=== PATIENT | female | born 1985 | race American Indian/Alaskan Native ===

== ENCOUNTER 2018-08-16 22:40 | Emergency (ER) | payer MEDICAID ==
[2018-08-16] MEDS ORDERED: Ondansetron 4 MG/2 ML SDV IVPUSH ONE (22:45)
[2018-08-16] MEDS ORDERED: Ondansetron 4 MG/2 ML SDV ONE (22:45)
[2018-08-16] MEDS ORDERED: LORazepam 2 MG/ML Syringe ONE (22:46)
--- NOTE | 2018-08-16 23:11 | EDM.PDOC ---
ED HPI GENERAL MEDICAL PROBLEM - General Chief Complaint: General Stated Complaint: NAUSEA Time Seen by Provider: 08/16/18 22:50 Source of Information: Reports: Patient History Limitations: Reports: No Limitations - History of Present Illness INITIAL COMMENTS - FREE TEXT/NARRATIVE: Patient presents to ER with concerns of withdrawing from alcohol and vomiting. States has been "on a godfrey" for 7 days. Drinking a pint of vodka daily and not eating for 7 days. She has been under more stress as of late but denies being suicidal. "just coping with alcohol". Is not a usual drinker. States the vodka helped dull her back pain. Today started vomiting and has been all day. Noted dark vomit and was concerned was related to blood. Had a 200 ml emesis in the ambulance enroute to here. Onset: Gradual Duration: Week(s): Location: Reports: Abdomen Quality: Reports: Burning Severity: Moderate Associated Symptoms: Reports: Nausea/Vomiting. Denies: Confusion, Loss of Appetite, Shortness of Breath, Syncope, Weakness Treatments FACILITIES OFFICER: Reports: IV/IO Lower Back Pain Score (Numeric/FACES): 5 - Related Data Allergies Allergy/AdvReac Type Severity Reaction Status Date / Time No Known Allergies Allergy Verified 08/16/18 23:00 Home Meds: Home Meds . [No Known Home Meds] 08/16/18 [History] Past Medical History Musculoskeletal History: Reports: Back Pain, Chronic Social & Family History - Tobacco Use Smoking Status *Q: Unknown Ever Smoked - Alcohol Use Alcohol Use History: Yes Days Per Week of Alcohol Use: 7 Days Per Week of Alcohol Use Comment: Pint of vodka daily for 7 days Date of Last Drink: 08/16/18 ED ROS GENERAL - Review of Systems Review Of Systems: See Below Constitutional: Reports: Weakness. Denies: Fever, Chills, Malaise HEENT: Denies: Ear Pain, Rhinitis, Throat Pain Respiratory: Denies: Shortness of Breath, Cough Cardiovascular: Denies: Chest Pain, Edema, Lightheadedness Endocrine: Denies: Fatigue GI/Abdominal: Reports: Abdominal Pain, Hematemesis, Nausea, Vomiting : Reports: No Symptoms Musculoskeletal: Reports: Back Pain Skin: Reports: No Symptoms Neurological: Reports: No Symptoms Psychiatric: Reports: Anxiety, Depression ED EXAM, GENERAL - Physical Exam Exam: See Below Exam Limited By: No Limitations General Appearance: Alert, WD/WN, Mild Distress Ears: Normal External Exam, Normal TMs Nose: Normal Inspection, Normal Mucosa, No Blood Throat/Mouth: Normal Inspection, Normal Oropharynx Head: Normocephalic Neck: Normal Inspection, Supple, Non-Tender Respiratory/Chest: No Respiratory Distress, Lungs Clear, Normal Breath Sounds Cardiovascular: Regular Rate, Rhythm GI/Abdominal: Normal Bowel Sounds, Soft, Tender (midepigastric area) Extremities: Normal Inspection, Normal Capillary Refill Neurological: Alert, Oriented Skin Exam: Warm, Dry Course - Vital Signs Last Recorded V/S: Last Vital Signs Temp 100.6 F 08/16/18 22:50 Pulse 88 08/16/18 22:50 Resp 18 08/16/18 22:50 BP 175/57 H 08/16/18 22:50 Pulse Ox 96 08/16/18 22:50 - Orders/Labs/Meds Orders: Active Orders 24 hr Category Date Time Status Abdomen 2V AP Flat Upright [CR] Stat Exams 08/16/18 23:00 Taken Labs: Laboratory Tests 08/16/18 08/16/18 08/16/18 Range/Units 22:59 23:00 23:12 WBC 10.4 H (5.0-10.0) 10^3/uL RBC 4.67 (4.00-5.50) 10^6/uL Hgb 12.3 (12.0-16.0) g/dL Hct 39.2 (37.0-47.0) % MCV 83.9 (82.0-94.0) fL MCH 26.3 L (27.0-32.0) pg MCHC 31.4 L (33.0-38.0) g/dL RDW Coeff of Xi 18.0 H (11.0-15.0) % Plt Count 190 (150-400) 10^3/uL Neut % (Auto) 90.0 H (35-85) % Lymph % (Auto) 5.2 L (10-55) % [place] % (Auto) 4.4 (0-16) % Eos % (Auto) 0 (0-5) % Baso % (Auto) 0.4 (0-3) % Neut # (Auto) 9.32 H (1.80-7.00) 10^3/uL Lymph # (Auto) 0.54 L (1.00-4.80) 10^3/uL [place] # (Auto) 0.46 (0.00-0.80) 10^3/uL Eos # (Auto) 0.00 (0.00-0.45) 10^3/uL Baso # (Auto) 0.04 10^3/uL Sodium 137 (136-145) mEq/L Potassium 3.2 L (3.5-5.0) mEq/L Chloride 95 L (98-106) mEq/L Carbon Dioxide 21 (21-32) mmol/L BUN 6 L (7-18) mg/dL Creatinine 0.8 (0.6-1.0) mg/dL Est Cr Clr Drug Dosing TNP Estimated GFR (MDRD) > 60 (>=60) mL/min Glucose 80 (75-99) mg/dL Calcium 8.6 (8.4-10.1) mg/dL Total Bilirubin 1.2 H (0.0-1.0) mg/dL AST 98 H (15-37) U/L ALT 171 H (12-78) U/L Alkaline Phosphatase 98 (46-116) U/L C-Reactive Protein < 0.2 L (0.2-0.8) mg/dL Total Protein 8.3 H (6.4-8.2) g/dL Albumin 4.2 (3.4-5.0) g/dL Urine Color Dark yellow (YELLOW) Urine Appearance Clear (CLEAR) Urine pH 6.0 (4.5-8.0) Ur Specific [place] >= 1.030 H (1.003-1.020) Urine Protein >=300 H (NEGATIVE) mg/dL Urine Glucose (UA) Negative (NEGATIVE) mg/dL Urine Ketones >=160 H (NEGATIVE) mg/dL Urine Occult Blood Moderate H (NEGATIVE) Urine Nitrite Negative (NEGATIVE) Urine Bilirubin Negative (NEGATIVE) Urine Urobilinogen 0.2 (0.2-1.0) EU/dL Ur Leukocyte Esterase Negative (NEGATIVE) Urine RBC 5-10 H (0-5) /HPF Urine WBC Not seen (0-5) /HPF Ur Squamous Epith Cells Few H (NOT SEEN) /HPF Urine Bacteria Few H (NOT SEEN) /HPF Urine Mucus Occasional H (NOT SEEN) /HPF Meds: Medications Discontinued Medications Generic Name Dose Route Start Last Admin Trade Name Aleksander PRN Reason Stop Dose Admin Promethazine HCl 25 mg/ Sodium 51 mls @ 100 mls/hr 08/16/18 23:54 08/17/18 00 :01 Chloride IV 100 mls/hr Q6H PRN Administration Nausea Sodium Chloride Confirm 08/17/18 00:16 08/17/18 00:18 Normal Saline Administered 08/17/18 00:17 999 mls/hr Dose Administration 1,000 mls @ as directed .ROUTE .STK-MED ONE Sodium Chloride 1,000 mls @ 200 mls/hr 08/17/18 01:45 08/17/18 04:02 Normal Saline IV 200 mls/hr ASDIRECTED JENNIFER Administration Lorazepam Confirm 08/16/18 22:46 08/16/18 23:37 Ativan Administered 08/16/18 22:47 Not Given Dose 2 mg .ROUTE .STK-MED ONE Lorazepam 1 mg 08/16/18 23:50 08/16/18 22:50 Ativan IVPUSH 08/16/18 23:51 1 mg ONETIME ONE Administration Ondansetron HCl Confirm 08/16/18 22:45 08/16/18 23:29 Zofran Administered 08/16/18 22:46 Not Given Dose 4 mg .ROUTE .STK-MED ONE Ondansetron HCl 4 mg 08/16/18 22:45 08/16/18 22:50 Zofran IVPUSH 08/16/18 22:46 4 mg STAT ONE Administration Ondansetron HCl 4 mg 08/17/18 04:04 08/17/18 04:06 Zofran IVPUSH 08/17/18 04:05 4 mg ONETIME ONE Administration - Re-Assessments/Exams Free Text/Narrative Re-Assessment/Exam: 08/16/18 23:55 Labs are stable. Xray negative. Still having issues with nausea and dry heaves. Will give Phenergan IV. Did ask patient about assistance for discharge home. Does not know who she can call, no friends in [place] that could give her a ride. Will continue with IV fluids and phenergan/zofran through night in extended ER. May need social psychologist to help arrange transportation home in am. 08/17/18 Patient awaiting mother to come from [place] for discharge. Is doing much better this am. Does still have stomach discomfort but nausea and vomiting has subsided. Departure - Departure Time of Disposition: 08:49 Disposition: Home, Self-Care 01 Condition: Good Clinical Impression: Vomiting, Alcohol abuse - Discharge Information *PRESCRIPTION DRUG MONITORING PROGRAM REVIEWED*: No *COPY OF PRESCRIPTION DRUG MONITORING REPORT IN PATIENT GILLIAN: No Referrals: Provider,Unknown [Primary Care Provider] - Forms: ED Department Discharge Additional Instructions: 1. Push fluids 2. Diet as tolerated 3. Phenergan 25 mg every 6 hours as needed for nausea 4. Follow up with primary care provider as needed - My Orders Last 24 Hours: My Active Orders 08/16/18 23:00 Abdomen 2V AP Flat Upright [CR] Stat - Assessment/Plan Last 24 Hours: My Active Orders 08/16/18 23:00 Abdomen 2V AP Flat Upright [CR] Stat
[2018-08-16 23:22] LABS: CHLORIDE,CL 95 mEq/L (98-106); SODIUM,NA 137 mEq/L (136-145)
[2018-08-16] MEDS ORDERED: LORazepam 2 MG/ML Syringe IVPUSH ONE (23:50)
[2018-08-16] MEDS ORDERED: Promethazine 25 MG in Sodium Chloride 0.9% 50 ML IV PRN (23:54)
[2018-08-17] MEDS ORDERED: Sodium Chloride 0.9% 1,000 ML ONE (00:16)
[2018-08-17] MEDS ORDERED: Sodium Chloride 0.9% 1,000 ML IV SCH (01:45)
[2018-08-17] MEDS ORDERED: Ondansetron 4 MG/2 ML SDV IVPUSH ONE (04:04)
== END 2018-08-17 10:00 | disposition home or self-care (01) ==
LOC: CC.ED 22:40
DX: R11.2 Nausea with vomiting, unspecified (principal); F10.10 Alcohol abuse, uncomplicated
CPT/HCPCS: 36415; 74019; 80053; 81001; 82271; 85025; 86140; 96361; 96365; 96375; 99284; J2060; J2405; J2550; J7030; J7050

== ENCOUNTER 2018-11-24 22:47 | Emergency (ER) | payer SELFPAY ==
[2018-11-24] MEDS ORDERED: Folic Acid 1 MG Tab PO ONE (23:04)
[2018-11-24] MEDS ORDERED: LORazepam 2 MG/ML Syringe IVPUSH ONE (23:04)
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
[2018-11-24] MEDS ORDERED: MVI, Adult with Vitamin K 10 ML, Folic Acid 1 MG, Thiamine 100 MG, Magnesium Sulfate 2 ... IV ONE ×5 (23:13)
[2018-11-24] MEDS ORDERED: VITAMIN K IV SCH ×4 (23:15)
[2018-11-24] MEDS ORDERED: MVI IV SCH ×4 (23:15)
[2018-11-24] MEDS ORDERED: MAGNESIUM SULFATE IV SCH ×4 (23:15)
[2018-11-24] MEDS ORDERED: [UNRECOGNIZED DRUG - OTHER] IV SCH ×4 (23:15)
[2018-11-24] MEDS ORDERED: THIAMINE IV SCH ×4 (23:15)
[2018-11-24] MEDS ORDERED: Ondansetron 4 MG/2 ML SDV IVPUSH ONE (23:16)
[2018-11-24] MEDS ORDERED: Promethazine 25 MG/ML SDV IM ONE (23:39)
[2018-11-24 23:40] LABS: CHLORIDE,CL 98 mEq/L (98-106); SODIUM,NA 140 mEq/L (136-145)
== END 2018-11-25 01:45 | disposition left against medical advice (07) ==
LOC: CC.ED 22:47
DX: F10.239 Alcohol dependence with withdrawal, unspecified (principal); F32.9 Major depressive disorder, single episode, unspecified; Z87.891 Personal history of nicotine dependence
CPT/HCPCS: 36415; 80053; 80305; 81001; 83735; 85025; 96365; 96366; 96372; 96375; 99285; A9270; J2060; J2550; J3411; J3475; J7030; J3490

== ENCOUNTER 2019-04-17 22:54 | Observation (INO) | payer MEDICAID ==
[~2019-04-17 22:54] MED LIST: Ondansetron 4 MG Tab.DIS ONE
[2019-04-17] MEDS ORDERED: Ondansetron 4 MG Tab.DIS PO ONE (23:10)
[2019-04-17] MEDS ORDERED: Sodium Chloride 0.9% 1,000 ML IV ONE (23:28)
--- NOTE | 2019-04-17 23:35 | EDM.PDOC ---
ED HPI GENERAL MEDICAL PROBLEM - General Chief Complaint: General Stated Complaint: alcohol withdrawal Time Seen by Provider: 04/17/19 23:21 Source of Information: Reports: Patient, EMS History Limitations: Reports: No Limitations - History of Present Illness INITIAL COMMENTS - FREE TEXT/NARRATIVE: Jazz is a 33 year old female who presents to the ED via [facility] with c /o nausea and vomiting. She reports she has been on a 10+day godfrey of drinking alcohol and tried to stop today, but has been vomiting since. Reports she has been throwing up since this morning. She does report her last drink of ETOH was this afternoon. Reportedly has drank 2 pints of vodka today. Does have issues with depression and alcoholism since finding her boyfriend, who hung himself back in 2012. She is not currently on any antidepressants, but reports she has an appointment next week as she wishes to be. She reports she was on lexapro in the past and this managed her depression well. She reports she is interested in quitting drinking, but seems to vomit when she tries to quit. Denies any suicidal ideation. Does have some generalized abdominal pain. No fever or chills at home. Does have temp of 100.1 deg F. Onset: Today Duration: Getting Worse Location: Reports: Abdomen Improves with: Reports: None Worsens with: Reports: None Associated Symptoms: Reports: Loss of Appetite, Nausea/Vomiting Abdomen Pain Score (Numeric/FACES): 7 - Related Data Allergies Allergy/AdvReac Type Severity Reaction Status Date / Time No Known Allergies Allergy Verified 04/17/19 22:52 Home Meds: Home Meds Escitalopram [Lexapro] 10 mg PO DAILY #30 tab 04/18/19 [Rx] LORazepam 0.5 mg PO Q4H PRN #15 tab 04/18/19 [Rx] Promethazine [Phenergan] 25 mg PO Q6H PRN #20 tab 04/18/19 [Rx] Past Medical History Cardiovascular History: Reports: High Cholesterol 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: Reports: Polycystic Ovaries Musculoskeletal History: Reports: Back Pain, Chronic Other Musculoskeletal History: HAD A TUMOR REMOVED FROM SPINE 2014; CHRONIC BACK PAIN SICNE Psychiatric History: Reports: Anxiety, Depression, PTSD Dermatologic History: Reports: Other (See Below) Other Dermatologic History: LUMPECTOMY - Past Surgical History Neurological Surgical History: Reports: Lumbar Spine Social & Family History - Family History Family Medical History: Noncontributory Cardiac: Reports: Hypertension Endocrine/Metabolic: Reports: Diabetes, type II - Tobacco Use Smoking Status *Q: Never Smoker - Caffeine Use Caffeine Use: Reports: None - Alcohol Use Days Per Week of Alcohol Use: 7 Number of Drinks Per Day: 6 Total Drinks Per Week: 42 - Recreational Drug Use Recreational Drug Use: No - Living Situation & Occupation Living situation: Reports: Single, with Family ED ROS GENERAL - Review of Systems Review Of Systems: ROS reveals no pertinent complaints other than HPI. ED EXAM, GENERAL - Physical Exam Exam: See Below Exam Limited By: No Limitations General Appearance: Alert, WD/WN, Mild Distress Throat/Mouth: Normal Inspection, Normal Lips, Normal Teeth, Normal Gums, Normal Oropharynx, Normal Voice, No Airway Compromise Respiratory/Chest: No Respiratory Distress, Lungs Clear, Normal Breath Sounds, No Accessory Muscle Use, Chest Non-Tender Cardiovascular: Normal Peripheral Pulses, Regular Rate, Rhythm, No Edema, No Gallop, No JVD, No Murmur, No Rub GI/Abdominal: Normal Bowel Sounds, Soft, Tender (generalized) Back Exam: Normal Inspection, Full Range of Motion. No: CVA Tenderness (L), CVA Tenderness (R) Extremities: Normal Inspection, Normal Range of Motion, Non-Tender, Normal Capillary Refill, No Pedal Edema Neurological: Alert, Oriented, CN II-XII Intact, Normal Cognition, Normal Gait, Normal Reflexes, No Motor/Sensory Deficits Psychiatric: Depressed Mood Skin Exam: Warm, Dry, Intact, Normal Color, No Rash Lymphatic: No Adenopathy Course - Vital Signs Last Recorded V/S: Last Vital Signs Temp 99.9 F 04/18/19 12:00 Pulse 114 H 04/18/19 12:00 Resp 20 04/18/19 12:00 BP 160/72 H 04/18/19 12:00 Pulse Ox 100 04/18/19 12:00 - Orders/Labs/Meds Orders: Active Orders 24 hr Category Date Time Status Patient Status [ADT] Routine ADT 04/18/19 00:49 Active Oxygen Therapy [RC] .PRN Care 04/18/19 00:49 Active Pulse Oximetry [RC] .PRN Care 04/18/19 00:49 Active Up With Assistance [RC] .PRN Care 04/18/19 00:49 Active Vital Signs [RC] 0000,0400,0800,1200,1600,2000 Care 04/18/19 00:49 Active Resuscitation Status Routine Resus Stat 04/18/19 00:07 Ordered Labs: Laboratory Tests 04/17/19 04/17/19 04/17/19 Range/Units 23:30 23:30 23:41 WBC 6.7 (5.0-10.0) 10^3/uL RBC 4.85 (4.00-5.50) 10^6/uL Hgb 13.6 (12.0-16.0) g/dL Hct 41.2 (37.0-47.0) % MCV 84.9 (82.0-94.0) fL MCH 28.0 (27.0-32.0) pg MCHC 33.0 (33.0-38.0) g/dL RDW Coeff of Xi 17.6 H (11.0-15.0) % Plt Count 247 (150-400) 10^3/uL Neut % (Auto) 81.5 (35-85) % Lymph % (Auto) 13.2 (10-55) % [place] % (Auto) 4.7 (0-16) % Eos % (Auto) 0.3 (0-5) % Baso % (Auto) 0.3 (0-3) % Neut # (Auto) 5.49 (1.80-7.00) 10^3/uL Lymph # (Auto) 0.89 L (1.00-4.80) 10^3/uL [place] # (Auto) 0.32 (0.00-0.80) 10^3/uL Eos # (Auto) 0.02 (0.00-0.45) 10^3/uL Baso # (Auto) 0.02 10^3/uL Sodium 144 (136-145) mEq/L Potassium 3.3 L (3.5-5.0) mEq/L Chloride 102 (98-106) mEq/L Carbon Dioxide 24 D (21-32) mmol/L BUN 7 (7-18) mg/dL Creatinine 0.8 (0.6-1.0) mg/dL Est Cr Clr Drug Dosing 105.51 mL/min Estimated GFR (MDRD) > 60 (>=60) mL/min Glucose 89 D (75-99) mg/dL Calcium 8.3 L (8.4-10.1) mg/dL Total Bilirubin 0.5 (0.0-1.0) mg/dL AST 118 H (15-37) U/L ALT 110 H (12-78) U/L Alkaline Phosphatase 101 (46-116) U/L Total Protein 8.2 (6.4-8.2) g/dL Albumin 4.1 (3.4-5.0) g/dL Urine Color Yellow (YELLOW) Urine Appearance Clear (CLEAR) Urine pH 6.5 (4.5-8.0) Ur Specific [place] 1.020 (1.003-1.020) Urine Protein >=300 H (NEGATIVE) mg/dL Urine Glucose (UA) Negative (NEGATIVE) mg/dL Urine Ketones 80 H (NEGATIVE) mg/dL Urine Occult Blood Small H (NEGATIVE) Urine Nitrite Negative (NEGATIVE) Urine Bilirubin Negative (NEGATIVE) Urine Urobilinogen 1.0 (0.2-1.0) EU/dL Ur Leukocyte Esterase Trace H (NEGATIVE) Urine RBC 0-5 (0-5) /HPF Urine WBC 5-10 H (0-5) /HPF Ur Squamous Epith Cells Many H (NOT SEEN) /HPF Urine Bacteria Few H (NOT SEEN) /HPF Urine Opiates Screen (NEGATIVE) Ur Oxycodone Screen (NEGATIVE) Urine Methadone Screen (NEGATIVE) Ur Barbiturates Screen (NEGATIVE) U Tricyclic Antidepress (NEGATIVE) Ur Phencyclidine Scrn (NEGATIVE) Ur Amphetamine Screen (NEGATIVE) U Methamphetamines Scrn (NEGATIVE) Urine MDMA Screen (NEGATIVE) U Benzodiazepines Scrn (NEGATIVE) Urine Cocaine Screen (NEGATIVE) U Marijuana (THC) Screen (NEGATIVE) Ethyl Alcohol 320 H* (0-3) mg/dL 04/17/19 Range/Units 23:53 WBC (5.0-10.0) 10^3/uL RBC (4.00-5.50) 10^6/uL Hgb (12.0-16.0) g/dL Hct (37.0-47.0) % MCV (82.0-94.0) fL MCH (27.0-32.0) pg MCHC (33.0-38.0) g/dL RDW Coeff of Xi (11.0-15.0) % Plt Count (150-400) 10^3/uL Neut % (Auto) (35-85) % Lymph % (Auto) (10-55) % [place] % (Auto) (0-16) % Eos % (Auto) (0-5) % Baso % (Auto) (0-3) % Neut # (Auto) (1.80-7.00) 10^3/uL Lymph # (Auto) (1.00-4.80) 10^3/uL [place] # (Auto) (0.00-0.80) 10^3/uL Eos # (Auto) (0.00-0.45) 10^3/uL Baso # (Auto) 10^3/uL Sodium (136-145) mEq/L Potassium (3.5-5.0) mEq/L Chloride (98-106) mEq/L Carbon Dioxide (21-32) mmol/L BUN (7-18) mg/dL Creatinine (0.6-1.0) mg/dL Est Cr Clr Drug Dosing mL/min Estimated GFR (MDRD) (>=60) mL/min Glucose (75-99) mg/dL Calcium (8.4-10.1) mg/dL Total Bilirubin (0.0-1.0) mg/dL AST (15-37) U/L ALT (12-78) U/L Alkaline Phosphatase (46-116) U/L Total Protein (6.4-8.2) g/dL Albumin (3.4-5.0) g/dL Urine Color (YELLOW) Urine Appearance (CLEAR) Urine pH (4.5-8.0) Ur Specific [place] (1.003-1.020) Urine Protein (NEGATIVE) mg/dL Urine Glucose (UA) (NEGATIVE) mg/dL Urine Ketones (NEGATIVE) mg/dL Urine Occult Blood (NEGATIVE) Urine Nitrite (NEGATIVE) Urine Bilirubin (NEGATIVE) Urine Urobilinogen (0.2-1.0) EU/dL Ur Leukocyte Esterase (NEGATIVE) Urine RBC (0-5) /HPF Urine WBC (0-5) /HPF Ur Squamous Epith Cells (NOT SEEN) /HPF Urine Bacteria (NOT SEEN) /HPF Urine Opiates Screen Negative (NEGATIVE) Ur Oxycodone Screen Negative (NEGATIVE) Urine Methadone Screen Negative (NEGATIVE) Ur Barbiturates Screen Negative (NEGATIVE) U Tricyclic Antidepress Negative (NEGATIVE) Ur Phencyclidine Scrn Negative (NEGATIVE) Ur Amphetamine Screen Negative (NEGATIVE) U Methamphetamines Scrn Negative (NEGATIVE) Urine MDMA Screen Negative (NEGATIVE) U Benzodiazepines Scrn Negative (NEGATIVE) Urine Cocaine Screen Negative (NEGATIVE) U Marijuana (THC) Screen Negative (NEGATIVE) Ethyl Alcohol (0-3) mg/dL Meds: Medications Discontinued Medications Generic Name Dose Route Start Last Admin Trade Name Freq PRN Reason Stop Dose Admin Acetaminophen 650 mg 04/18/19 00:49 Tylenol PO Q4H PRN Pain (Mild 1-3)/fever Promethazine HCl 25 mg/ Sodium 51 mls @ 100 mls/hr 04/17/19 23:29 04/18/19 07 :42 Chloride IV 100 mls/hr Q6H PRN Administration Nausea Sodium Chloride 1,000 mls @ 999 mls/hr 04/17/19 23:28 04/17/19 23:51 Normal Saline IV 04/18/19 00:28 999 mls/hr .BOLUS ONE Administration Potassium Chloride/Sodium Chloride 1,000 mls @ 150 mls/hr 04/18/19 00:49 07:42 Normal Saline With 20 Meq Kcl IV 150 mls/hr ASDIRECTED JENNIFER Administration Lorazepam 1 mg 04/18/19 00:49 04/18/19 12:38 Ativan IVPUSH 1 mg Q2H PRN Administration Withdrawal Symptoms Lorazepam 2 packet 04/18/19 13:55 04/18/19 14:10 Take Home: Lorazepam 0.5 Mg, 2 Tab Pack PO 04/18/19 13:56 2 packet ONETIME ONE Administration Ondansetron HCl Confirm 04/17/19 22:42 04/17/19 23:53 Zofran Odt Administered 04/17/19 22:43 Not Given Dose 4 mg .ROUTE .STK-MED ONE Ondansetron HCl 4 mg 04/17/19 23:10 04/17/19 23:10 Zofran Odt PO 04/17/19 23:11 4 mg ONETIME ONE Administration Pantoprazole Sodium 40 mg 04/18/19 00:49 04/18/19 01:15 Protonix Iv IVPUSH 40 mg Q24H JENNIFER Administration Departure - Departure Time of Disposition: 00:18 Disposition: Refer to Observation Condition: Fair Clinical Impression: Alcohol abuse, Alcoholism, Elevated liver enzymes Depression Qualifiers: Depression Type: major depressive disorder Major depression recurrence: recurrent Active/Remission status: currently active Major depression episode severity: severe Psychotic features: without psychotic features Qualified Code(s ): F33.2 - Major depressive disorder, recurrent severe without psychotic features Vomiting Qualifiers: Vomiting type: unspecified Vomiting Intractability: non-intractable Nausea presence: with nausea Qualified Code(s): R11.2 - Nausea with vomiting, unspecified - Discharge Information *PRESCRIPTION DRUG MONITORING PROGRAM REVIEWED*: Not Applicable *COPY OF PRESCRIPTION DRUG MONITORING REPORT IN PATIENT GILLIAN: Not Applicable - Problem List & Annotations (1) Alcohol abuse SNOMED Code(s): 70156908 Code(s): F10.10 - ALCOHOL ABUSE, UNCOMPLICATED Status: Acute (2) Alcoholism SNOMED Code(s): 7127224 Code(s): F10.20 - ALCOHOL DEPENDENCE, UNCOMPLICATED Status: Acute Priority: Medium (3) Depression SNOMED Code(s): 00449865 Code(s): F32.9 - MAJOR DEPRESSIVE DISORDER, SINGLE EPISODE, UNSPECIFIED Status: Acute Priority: High Qualifiers: Depression Type: major depressive disorder Major depression recurrence: recurrent Active/Remission status: currently active Major depression episode severity: severe Psychotic features: without psychotic features Qualified Code(s): F33.2 - Major depressive disorder, recurrent severe without psychotic features (4) Vomiting SNOMED Code(s): 708996299 Code(s): R11.10 - VOMITING, UNSPECIFIED Status: Acute Qualifiers: Vomiting type: unspecified Vomiting Intractability: non-intractable Nausea presence: with nausea Qualified Code(s): R11.2 - Nausea with vomiting, unspecified (5) Elevated liver enzymes SNOMED Code(s): 173064737 Code(s): R74.8 - ABNORMAL LEVELS OF OTHER SERUM ENZYMES Status: Chronic - Problem List Review Problem List Initiated/Reviewed/Updated: Yes - My Orders Last 24 Hours: My Active Orders 04/18/19 00:07 Resuscitation Status Routine 04/18/19 00:49 Patient Status [ADT] Routine Oxygen Therapy [RC] .PRN Pulse Oximetry [RC] .PRN Up With Assistance [RC] .PRN Vital Signs [RC] 0000,0400,0800,1200,1600,2000 - Assessment/Plan Admission H&P: Please use this note as an admission H&P Last 24 Hours: My Active Orders 04/18/19 00:07 Resuscitation Status Routine 04/18/19 00:49 Patient Status [ADT] Routine Oxygen Therapy [RC] .PRN Pulse Oximetry [RC] .PRN Up With Assistance [RC] .PRN Vital Signs [RC] 0000,0400,0800,1200,1599,1999 Assessment:: Alcohol Abuse Alcoholism Depression Vomiting Plan: Will admit to observation overnight for IVF and K. Phenergan as needed for N/V. Will start protonix. Clear liquid until N/V improves. Will discuss further options for ETOH abuse in am when patient is sober. ETOH level is 320.
[2019-04-17] MEDS: Promethazine 25 MG in Sodium Chloride 0.9% 50 ML IV PRN (23:51)
[2019-04-17 23:52] LABS: CHLORIDE,CL 102 mEq/L (98-106); SODIUM,NA 144 mEq/L (136-145)
[2019-04-18] MEDS ORDERED: Acetaminophen 325 MG Tab PO PRN (00:49)
[2019-04-18] MEDS ORDERED: LORazepam 2 MG/ML Syringe IVPUSH PRN (00:49)
[2019-04-18] MEDS ORDERED: Pantoprazole 40 MG Vial IVPUSH SCH (00:49)
[2019-04-18] MEDS: NS + KCl 20mEq/L 1,000 ML IV SCH ×2 (01:15→07:42)
[2019-04-18] MEDS: Promethazine 25 MG in Sodium Chloride 0.9% 50 ML IV PRN (07:42)
[2019-04-18] MEDS ORDERED: LORazepam 0.5 MG Tab PO ONE (13:47)
--- NOTE | 2019-04-18 13:49 | PCM.DCSUM1 ---
Discharge Summary - Hospital Course HPI Initial Comments: Jazz is a 33 year old female who was admitted to the hospital yesterday for ETOH intoxication and vomiting. She has a long history of ETOH abuse. Reports she drank 2 pints of vodka the day prior and then tried to stop and was vomiting uncontrollably. K on admission was 3.3. She did receive NS with 20 meq IVF throughout stay. On day of discharge, patient denies any vomiting since admission. Reports she wishes to go home and follow up outpatient for ETOH treatment. She does have an appointment on April 29 with her PCP. She will be discharged home on Phenergan every 6 hours as needed for nausea. She will be started on Lexapro, per patients wishes, as she did well on this in the past for her depression. I will also give her a few ativan to use for withdrawal symptoms the next few days. She is advised to follow up with her PCP as scheduled next week. Discussed importance of abstaining from alcohol. - Discharge Data Discharge Date: 04/18/19 Discharge Disposition: Home, Self-Care 01 Condition: Good - Discharge Diagnosis/Problem(s) (1) Alcohol abuse SNOMED Code(s): 86037133 ICD Code: F10.10 - ALCOHOL ABUSE, UNCOMPLICATED Status: Acute (2) Alcoholism SNOMED Code(s): 3901089 ICD Code: F10.20 - ALCOHOL DEPENDENCE, UNCOMPLICATED Status: Acute Priority: Medium (3) Depression SNOMED Code(s): 14714030 ICD Code: F32.9 - MAJOR DEPRESSIVE DISORDER, SINGLE EPISODE, UNSPECIFIED Status: Acute Priority: High Qualifiers: Depression Type: major depressive disorder Major depression recurrence: recurrent Active/Remission status: currently active Major depression episode severity: severe Psychotic features: without psychotic features Qualified Code(s): F33.2 - Major depressive disorder, recurrent severe without psychotic features (4) Vomiting SNOMED Code(s): 253884793 ICD Code: R11.10 - VOMITING, UNSPECIFIED Status: Acute Qualifiers: Vomiting type: unspecified Vomiting Intractability: non-intractable Nausea presence: with nausea Qualified Code(s): R11.2 - Nausea with vomiting, unspecified (5) Elevated liver enzymes SNOMED Code(s): 767618563 ICD Code: R74.8 - ABNORMAL LEVELS OF OTHER SERUM ENZYMES Status: Chronic - Patient Instructions Diet: Usual Diet as Tolerated Activity: As Tolerated - Discharge Plan *PRESCRIPTION DRUG MONITORING PROGRAM REVIEWED*: Not Applicable *COPY OF PRESCRIPTION DRUG MONITORING REPORT IN PATIENT GILLIAN: Not Applicable Prescriptions/Med Rec: Escitalopram [Lexapro] 10 mg PO DAILY #30 tab LORazepam 0.5 mg PO Q4H PRN #15 tab PRN Reason: Anxiety Promethazine [Phenergan] 25 mg PO Q6H PRN #20 tab PRN Reason: Nausea Home Medications: Home Meds Escitalopram [Lexapro] 10 mg PO DAILY #30 tab 04/18/19 [Rx] LORazepam 0.5 mg PO Q4H PRN #15 tab 04/18/19 [Rx] Promethazine [Phenergan] 25 mg PO Q6H PRN #20 tab 04/18/19 [Rx] Forms: ED Department Discharge - Discharge Summary/Plan Comment DC Time >30 min.: No - General Info Date of Service: 04/17/19 Admission Dx/Problem (Free Text: Alcohol Abuse Alcoholism Vomiting Depression Subjective Update: Jzaz reports she is feeling much better this morning. Has not had any vomiting throughout the night. She reports she is very motivated to quit drinking and plans to do follow up with her PCP outpatient and arrange for inpatient treatment at [facility] in [place]. Denies any complaints. She is alert and oriented and tolerating a general diet. Functional Status: Reports: Pain Controlled, Tolerating Diet, Ambulating, Urinating. Denies: New Symptoms - Review of Systems General: Reports: No Symptoms HEENT: Reports: No Symptoms Pulmonary: Reports: No Symptoms Cardiovascular: Reports: No Symptoms Gastrointestinal: Reports: No Symptoms. Denies: Nausea, Vomiting Genitourinary: Reports: No Symptoms - Patient Data Vitals - Most Recent: Last Vital Signs Temp 99.9 F 04/18/19 12:00 Pulse 114 H 04/18/19 12:00 Resp 20 04/18/19 12:00 BP 160/72 H 04/18/19 12:00 Pulse Ox 100 04/18/19 12:00 Weight - Most Recent: 306 lb I&O - Last 24 hours: Intake & Output 04/17/19 04/18/19 04/18/19 22:59 06:59 14:59 Intake Total 968 Balance 968 Lab Results - Last 24 hrs: Laboratory Results - last 24 hr 04/17/19 04/17/19 04/17/19 Range/Units 23:30 23:30 23:41 WBC 6.7 (5.0-10.0) 10^3/uL RBC 4.85 (4.00-5.50) 10^6/uL Hgb 13.6 (12.0-16.0) g/dL Hct 41.2 (37.0-47.0) % MCV 84.9 (82.0-94.0) fL MCH 28.0 (27.0-32.0) pg MCHC 33.0 (33.0-38.0) g/dL RDW Coeff of Xi 17.6 H (11.0-15.0) % Plt Count 247 (150-400) 10^3/uL Neut % (Auto) 81.5 (35-85) % Lymph % (Auto) 13.2 (10-55) % [place] % (Auto) 4.7 (0-16) % Eos % (Auto) 0.3 (0-5) % Baso % (Auto) 0.3 (0-3) % Neut # (Auto) 5.49 (1.80-7.00) 10^3/uL Lymph # (Auto) 0.89 L (1.00-4.80) 10^3/uL [place] # (Auto) 0.32 (0.00-0.80) 10^3/uL Eos # (Auto) 0.02 (0.00-0.45) 10^3/uL Baso # (Auto) 0.02 10^3/uL Sodium 144 (136-145) mEq/L Potassium 3.3 L (3.5-5.0) mEq/L Chloride 102 (98-106) mEq/L Carbon Dioxide 24 D (21-32) mmol/L BUN 7 (7-18) mg/dL Creatinine 0.8 (0.6-1.0) mg/dL Est Cr Clr Drug Dosing 105.51 mL/min Estimated GFR (MDRD) > 60 (>=60) mL/min Glucose 89 D (75-99) mg/dL Calcium 8.3 L (8.4-10.1) mg/dL Total Bilirubin 0.5 (0.0-1.0) mg/dL AST 118 H (15-37) U/L ALT 110 H (12-78) U/L Alkaline Phosphatase 101 (46-116) U/L Total Protein 8.2 (6.4-8.2) g/dL Albumin 4.1 (3.4-5.0) g/dL Urine Color Yellow (YELLOW) Urine Appearance Clear (CLEAR) Urine pH 6.5 (4.5-8.0) Ur Specific [place] 1.020 (1.003-1.020) Urine Protein >=300 H (NEGATIVE) mg/dL Urine Glucose (UA) Negative (NEGATIVE) mg/dL Urine Ketones 80 H (NEGATIVE) mg/dL Urine Occult Blood Small H (NEGATIVE) Urine Nitrite Negative (NEGATIVE) Urine Bilirubin Negative (NEGATIVE) Urine Urobilinogen 1.0 (0.2-1.0) EU/dL Ur Leukocyte Esterase Trace H (NEGATIVE) Urine RBC 0-5 (0-5) /HPF Urine WBC 5-10 H (0-5) /HPF Ur Squamous Epith Cells Many H (NOT SEEN) /HPF Urine Bacteria Few H (NOT SEEN) /HPF Urine Opiates Screen (NEGATIVE) Ur Oxycodone Screen (NEGATIVE) Urine Methadone Screen (NEGATIVE) Ur Barbiturates Screen (NEGATIVE) U Tricyclic Antidepress (NEGATIVE) Ur Phencyclidine Scrn (NEGATIVE) Ur Amphetamine Screen (NEGATIVE) U Methamphetamines Scrn (NEGATIVE) Urine MDMA Screen (NEGATIVE) U Benzodiazepines Scrn (NEGATIVE) Urine Cocaine Screen (NEGATIVE) U Marijuana (THC) Screen (NEGATIVE) Ethyl Alcohol 320 H* (0-3) mg/dL 04/17/19 Range/Units 23:53 WBC (5.0-10.0) 10^3/uL RBC (4.00-5.50) 10^6/uL Hgb (12.0-16.0) g/dL Hct (37.0-47.0) % MCV (82.0-94.0) fL MCH (27.0-32.0) pg MCHC (33.0-38.0) g/dL RDW Coeff of Xi (11.0-15.0) % Plt Count (150-400) 10^3/uL Neut % (Auto) (35-85) % Lymph % (Auto) (10-55) % [place] % (Auto) (0-16) % Eos % (Auto) (0-5) % Baso % (Auto) (0-3) % Neut # (Auto) (1.80-7.00) 10^3/uL Lymph # (Auto) (1.00-4.80) 10^3/uL [place] # (Auto) (0.00-0.80) 10^3/uL Eos # (Auto) (0.00-0.45) 10^3/uL Baso # (Auto) 10^3/uL Sodium (136-145) mEq/L Potassium (3.5-5.0) mEq/L Chloride (98-106) mEq/L Carbon Dioxide (21-32) mmol/L BUN (7-18) mg/dL Creatinine (0.6-1.0) mg/dL Est Cr Clr Drug Dosing mL/min Estimated GFR (MDRD) (>=60) mL/min Glucose (75-99) mg/dL Calcium (8.4-10.1) mg/dL Total Bilirubin (0.0-1.0) mg/dL AST (15-37) U/L ALT (12-78) U/L Alkaline Phosphatase (46-116) U/L Total Protein (6.4-8.2) g/dL Albumin (3.4-5.0) g/dL Urine Color (YELLOW) Urine Appearance (CLEAR) Urine pH (4.5-8.0) Ur Specific [place] (1.003-1.020) Urine Protein (NEGATIVE) mg/dL Urine Glucose (UA) (NEGATIVE) mg/dL Urine Ketones (NEGATIVE) mg/dL Urine Occult Blood (NEGATIVE) Urine Nitrite (NEGATIVE) Urine Bilirubin (NEGATIVE) Urine Urobilinogen (0.2-1.0) EU/dL Ur Leukocyte Esterase (NEGATIVE) Urine RBC (0-5) /HPF Urine WBC (0-5) /HPF Ur Squamous Epith Cells (NOT SEEN) /HPF Urine Bacteria (NOT SEEN) /HPF Urine Opiates Screen Negative (NEGATIVE) Ur Oxycodone Screen Negative (NEGATIVE) Urine Methadone Screen Negative (NEGATIVE) Ur Barbiturates Screen Negative (NEGATIVE) U Tricyclic Antidepress Negative (NEGATIVE) Ur Phencyclidine Scrn Negative (NEGATIVE) Ur Amphetamine Screen Negative (NEGATIVE) U Methamphetamines Scrn Negative (NEGATIVE) Urine MDMA Screen Negative (NEGATIVE) U Benzodiazepines Scrn Negative (NEGATIVE) Urine Cocaine Screen Negative (NEGATIVE) U Marijuana (THC) Screen Negative (NEGATIVE) Ethyl Alcohol (0-3) mg/dL JIGNESH Results - Last 24 hrs: Microbiology 04/17/19 23:38 Gastric Occult Blood - Final Gastric Fluid Med Orders - Current: Current Medications Acetaminophen (Tylenol) 650 mg PO Q4H PRN PRN Reason: Pain (Mild 1-3)/fever Promethazine HCl 25 mg/ Sodium (Chloride) 51 mls @ 100 mls/hr IV Q6H PRN PRN Reason: Nausea Last Admin: 04/18/19 07:42 Dose: 100 mls/hr Potassium Chloride/Sodium Chloride (Normal Saline With 20 Meq Kcl) 1,000 mls @ 150 mls/hr IV ASDIRECTED JENNIFER Last Admin: 04/18/19 07:42 Dose: 150 mls/hr Lorazepam (Ativan) 1 mg IVPUSH Q2H PRN PRN Reason: Withdrawal Symptoms Last Admin: 04/18/19 12:38 Dose: 1 mg Pantoprazole Sodium (Protonix Iv) 40 mg IVPUSH Q24H [facility] Last Admin: 04/18/19 01:15 Dose: 40 mg Discontinued Medications Sodium Chloride (Normal Saline) 1,000 mls @ 999 mls/hr IV .BOLUS ONE Stop: 04/18/19 00:28 Last Admin: 04/17/19 23:51 Dose: 999 mls/hr Ondansetron HCl (Zofran Odt) Confirm Administered Dose 4 mg .ROUTE .STK-MED ONE Stop: 04/17/19 22:43 Last Admin: 04/17/19 23:53 Dose: Not Given Ondansetron HCl (Zofran Odt) 4 mg PO ONETIME ONE Stop: 04/17/19 23:11 Last Admin: 04/17/19 23:10 Dose: 4 mg - Exam General: Reports: Alert, Oriented, No Acute Distress Neck: Reports: Supple Lungs: Reports: Clear to Auscultation, Normal Respiratory Effort Cardiovascular: Reports: Regular Rate, Regular Rhythm GI/Abdominal Exam: Normal Bowel Sounds, Soft, Non-Tender, No Organomegaly, No Distention, No Abnormal Bruit, No Mass, Pelvis Stable Back Exam: Reports: Normal Inspection, Full Range of Motion. Denies: CVA Tenderness (L), CVA Tenderness (R) Extremities: Normal Inspection, Normal Range of Motion, Non-Tender, No Pedal Edema, Normal Capillary Refill Neurological: Reports: No New Focal Deficit Psy/Mental Status: Reports: Alert, Normal Affect, Normal Mood
[2019-04-18] MEDS ORDERED: Take Home: LORazepam 0.5 MG Tab, 2 Tab Pack PO ONE (13:55)
== END 2019-04-18 13:48 | disposition home or self-care (01) ==
LOC: CC.ED 22:54 → CC.MS 04-18 00:07 → UNDOADMOB 04-18 00:46 → INTOOBSV 04-18 00:46 → OBSVTOIN 04-18 00:46 → CC.MS 04-18 00:46 → UNDODISOB 04-18 13:48
PROVIDERS: ADMIT Nurse Practitioner Family; ATTEND Nurse Practitioner Family
DX: F10.20 Alcohol dependence, uncomplicated (principal); F33.2 Major depressive disorder, recurrent severe without psychotic features; R11.2 Nausea with vomiting, unspecified; R74.8 Abnormal levels of other serum enzymes; F10.239 Alcohol dependence with withdrawal, unspecified
CPT/HCPCS: 36415; 80053; 80305-QW; 81001; 82271; 85025; 96361; 96365; 96374; 96375; 99285-25; A9270-GY; C9113; G0378; G0480; J2060; J2550; J3480; J7030; J7050

== ENCOUNTER 2019-05-13 17:48 | Emergency (ER) | payer MEDICAID ==
[2019-05-13] MEDS ORDERED: Ondansetron 4 MG/2 ML SDV IVPUSH PRN (17:54)
[2019-05-13] MEDS ORDERED: Lactated Ringers 1,000 ML IV SCH (18:00)
[2019-05-13] MEDS ORDERED: Promethazine 25 MG in Sodium Chloride 0.9% 50 ML IV PRN (18:10)
[2019-05-13] MEDS ORDERED: Pantoprazole 40 MG Vial IVPUSH ONE (18:47)
--- NOTE | 2019-05-13 19:02 | EDM.PDOC ---
ED HPI GENERAL MEDICAL PROBLEM - General Chief Complaint: Gastrointestinal Problem Stated Complaint: vomiting "dark" stuff Time Seen by Provider: 05/13/19 18:20 Source of Information: Reports: Patient History Limitations: Reports: No Limitations - History of Present Illness INITIAL COMMENTS - FREE TEXT/NARRATIVE: Patient presents to ER with complaints of vomiting and lower quadrant abdominal pain. She admits she has been on a "6 day godfrey with drinking vodka Coke and not eating". Admits that when she tries to stop the alcohol, gets sick and vomits excessively. Relates that when she gets the most depressed, will go "on a godfrey". Is aware she is an alcoholic, does see a therapist. Has not ever been to rehab. Is able to go without drinking while attending college. Does have kids at home that she cares for but "every now and then this happens and my brother has to step in to take care of them". Well aware of her problem but "doesn't know how to quit". Has tried antidepressants but doesn't take them routinely. Noted to vomit multiple times today, thought there was blood present this afternoon. Also has pain in her left great toe. Has noted pus from under the nail and increased discomfort. Has been in our ER x4 since August with similar complaints/concerns. Onset: Gradual Duration: Hour(s):, Waxing/Waning Location: Reports: Abdomen Quality: Reports: Ache, Sharp Severity: Moderate Associated Symptoms: Reports: Fever/Chills, Nausea/Vomiting. Denies: Confusion , Chest Pain, Cough, Shortness of Breath Abdominal Pain Score (Numeric/FACES): 7 - Related Data Allergies Allergy/AdvReac Type Severity Reaction Status Date / Time No Known Allergies Allergy Verified 05/13/19 18:01 Home Meds: Home Meds Escitalopram [Lexapro] 10 mg PO DAILY #30 tab 04/18/19 [Rx] LORazepam 0.5 mg PO Q4H PRN #15 tab 04/18/19 [Rx] Promethazine [Phenergan] 25 mg PO Q6H PRN #20 tab 04/18/19 [Rx] Past Medical History Cardiovascular History: Reports: High Cholesterol Gastrointestinal History: Reports: Other (See Below) Other Gastrointestinal History: has had several episodes of abdominal pain past few months [employer] History: Reports: Polycystic Ovaries Musculoskeletal History: Reports: Back Pain, Chronic Other Musculoskeletal History: HAD A TUMOR REMOVED FROM SPINE 2015; CHRONIC BACK PAIN SICNE Psychiatric History: Reports: Anxiety, Depression, PTSD Dermatologic History: Reports: Other (See Below) Other Dermatologic History: LUMPECTOMY - Past Surgical History Cardiovascular Surgical History: Reports: None GI Surgical History: Reports: None Neurological Surgical History: Reports: Lumbar Spine Musculoskeletal Surgical History: Reports: Other (See Below) Other Musculoskeletal Surgeries/Procedures:: see above Social & Family History - Family History Family Medical History: Noncontributory Cardiac: Reports: Hypertension Endocrine/Metabolic: Reports: Diabetes, type II - Tobacco Use Smoking Status *Q: Never Smoker - Caffeine Use Caffeine Use: Reports: None - Alcohol Use Days Per Week of Alcohol Use: 7 Number of Drinks Per Day: 5 Total Drinks Per Week: 35 Date of Last Drink: 05/13/19 Time of Last Drink: 11:00 - Recreational Drug Use Recreational Drug Use: No - Living Situation & Occupation Living situation: Reports: Single, with Family ED ROS GENERAL - Review of Systems Review Of Systems: See Below Constitutional: Reports: Fever, Chills, Malaise, Weakness, Fatigue, Decreased Appetite HEENT: Reports: No Symptoms Respiratory: Denies: Shortness of Breath, Cough Cardiovascular: Denies: Chest Pain, Lightheadedness Endocrine: Reports: Fatigue GI/Abdominal: Reports: Abdominal Pain, Hematemesis, Nausea, Vomiting. Denies: Constipation, Diarrhea, Hematochezia, Melena : Reports: No Symptoms Musculoskeletal: Reports: No Symptoms Skin: Reports: No Symptoms Neurological: Reports: No Symptoms ED EXAM, GI/ABD - Physical Exam Exam: See Below Exam Limited By: No Limitations General Appearance: Alert, WD/WN, No Apparent Distress Ears: Normal External Exam, Normal TMs Nose: Normal Inspection Throat/Mouth: Normal Inspection, Normal Oropharynx Head: Normocephalic Neck: Normal Inspection, Supple Course - Vital Signs Last Recorded V/S: Last Vital Signs Temp 100.0 F 05/13/19 19:00 Pulse 78 05/13/19 19:00 Resp 16 05/13/19 19:00 BP 144/68 H 05/13/19 19:00 Pulse Ox 96 05/13/19 19:00 - Orders/Labs/Meds Orders: Active Orders 24 hr Category Date Time Status Abdomen 2V AP Flat Upright [CR] Stat Exams 05/13/19 18:10 Taken Labs: Laboratory Tests 05/13/19 05/13/19 05/13/19 Range/Units 18:05 18:15 18:40 WBC 7.5 (5.0-10.0) 10^3/uL RBC 4.44 (4.00-5.50) 10^6/uL Hgb 12.5 (12.0-16.0) g/dL Hct 38.4 (37.0-47.0) % MCV 86.5 (82.0-94.0) fL MCH 28.2 (27.0-32.0) pg MCHC 32.6 L (33.0-38.0) g/dL RDW Coeff of Xi 16.3 H (11.0-15.0) % Plt Count 300 (150-400) 10^3/uL Neut % (Auto) 73.0 (35-85) % Lymph % (Auto) 23.1 (10-55) % Vance % (Auto) 3.3 (0-16) % Eos % (Auto) 0.3 (0-5) % Baso % (Auto) 0.3 (0-3) % Neut # (Auto) 5.47 (1.80-7.00) 10^3/uL Lymph # (Auto) 1.73 (1.00-4.80) 10^3/uL Vance # (Auto) 0.25 (0.00-0.80) 10^3/uL Eos # (Auto) 0.02 (0.00-0.45) 10^3/uL Baso # (Auto) 0.02 10^3/uL Sodium 141 (136-145) mEq/L Potassium 4.1 D (3.5-5.0) mEq/L Chloride 102 (98-106) mEq/L Carbon Dioxide 19 L (21-32) mmol/L BUN 11 D (7-18) mg/dL Creatinine 0.7 (0.6-1.0) mg/dL Est Cr Clr Drug Dosing 120.58 mL/min Estimated GFR (MDRD) > 60 (>=60) mL/min Glucose 71 L (75-99) mg/dL Calcium 8.8 (8.4-10.1) mg/dL Total Bilirubin 0.5 (0.0-1.0) mg/dL AST 47 H (15-37) U/L ALT 64 (12-78) U/L Alkaline Phosphatase 74 (46-116) U/L C-Reactive Protein < 0.2 L (0.2-0.8) mg/dL Total Protein 8.1 (6.4-8.2) g/dL Albumin 3.9 (3.4-5.0) g/dL Lipase 147 (73-393) U/L Urine Color Red (YELLOW) Urine Appearance Clear (CLEAR) Urine pH 5.5 (4.5-8.0) Ur Specific [place] >= 1.030 H (1.003-1.020) Urine Protein >=300 H (NEGATIVE) mg/dL Urine Glucose (UA) Negative (NEGATIVE) mg/dL Urine Ketones >=160 H (NEGATIVE) mg/dL Urine Occult Blood Large H (NEGATIVE) Urine Nitrite Negative (NEGATIVE) Urine Bilirubin Negative (NEGATIVE) Urine Urobilinogen 0.2 (0.2-1.0) EU/dL Ur Leukocyte Esterase Negative (NEGATIVE) Urine RBC Packed H (0-5) /HPF Urine WBC Not seen (0-5) /HPF Ethyl Alcohol 277 H (0-3) mg/dL Meds: Medications Discontinued Medications Generic Name Dose Route Start Last Admin Trade Name Freq PRN Reason Stop Dose Admin Lactated Ringer's 1,000 mls @ 250 mls/hr 05/13/19 18:00 05/13/19 18:20 Ringers, Lactated IV 250 mls/hr ASDIRECTED JENNIFER Administration Promethazine HCl 25 mg/ Sodium 51 mls @ 100 mls/hr 05/13/19 18:10 05/13/19 18 :23 Chloride IV 100 mls/hr Q6H PRN Administration Nausea Multivitamins/Minerals 10 ml/ 1,015.2 mls @ 333 mls/hr 05/13/19 19:15 19:25 Folic Acid 1 mg/ Thiamine HCl IV 05/13/19 22:17 333 mls/hr 100 mg/ Magnesium Sulfate 2 gm ONETIME ONE Administration / Sodium Chloride Ondansetron HCl 4 mg 05/13/19 17:54 Zofran IVPUSH Q6H PRN Nausea Pantoprazole Sodium 40 mg 05/13/19 18:47 05/13/19 19:05 Protonix Iv IVPUSH 05/13/19 18:48 40 mg ONETIME ONE Administration - Re-Assessments/Exams Free Text/Narrative Re-Assessment/Exam: 05/13/190 Lab results all normal. No vomiting since arrival. Resting quietly. Will complete banana bag Departure - Departure Time of Disposition: 21:57 Disposition: Home, Self-Care 01 Condition: Fair Clinical Impression: Alcohol abuse Vomiting Qualifiers: Vomiting type: unspecified Vomiting Intractability: non-intractable Nausea presence: with nausea Qualified Code(s): R11.2 - Nausea with vomiting, unspecified - Discharge Information *PRESCRIPTION DRUG MONITORING PROGRAM REVIEWED*: No *COPY OF PRESCRIPTION DRUG MONITORING REPORT IN PATIENT GILLIAN: No Referrals: PCP,None [Ordering Only Provider] - Forms: ED Department Discharge Additional Instructions: 1. Push fluids 2. Avoid further alcohol 3. Protonix 40 mg daily for 30 days 4. Follow up if ongoing concerns. - My Orders Last 24 Hours: My Active Orders 05/13/19 18:10 Abdomen 2V AP Flat Upright [CR] Stat - Assessment/Plan Last 24 Hours: My Active Orders 05/13/19 18:10 Abdomen 2V AP Flat Upright [CR] Stat
[2019-05-13 19:04] LABS: CHLORIDE,CL 102 mEq/L (98-106); SODIUM,NA 141 mEq/L (136-145)
[2019-05-13] MEDS ORDERED: MVI, Adult with Vitamin K 10 ML, Folic Acid 1 MG, Thiamine 100 MG, Magnesium Sulfate 2 ... IV ONE ×5 (19:15)
== END 2019-05-13 22:35 | disposition home or self-care (01) ==
LOC: CC.ED 17:48
DX: F10.10 Alcohol abuse, uncomplicated (principal); Y90.7 Blood alcohol level of 200-239 mg/100 ml; Z79.899 Other long term (current) drug therapy
CPT/HCPCS: 36415; 74019; 80053; 81001; 83690; 85025; 86140; 96361; 96365; 96366; 96367; 96375; 99284; C9113; G0480; J2550; J3411; J3475; J7030; J7050; J7120; J3490